=== PATIENT | female | born 1950 | race Caucasian/White ===

== ENCOUNTER 2018-06-03 18:48 | Outpatient (REF) | payer OTHER, SELFPAY ==
[2018-06-03 20:21] LABS: ALT 17 U/L (12-78); Anion Gap 7.4 mmol/L (3-11); BUN 16 mg/dL (7-18); CO2 32.6 mmol/L (21.0-32.0); CREATININE 1.41 mg/dL (0.55-1.02); Calcium 9.8 mg/dL (8.5-10.1); Chloride 102 mmol/L (98-107); Estimated GFR 36.98 (mL/min/1.73m2); Glucose 101 mg/dL (70-100); LDL CHOLESTEROL 109 mg/dL (<100); Sodium 142 mmol/L (136-145); TSH 1.09 uIU/mL (0.358-3.74)
[2018-06-07 13:28] LABS: Albumin 60.5 % (55.8-66.1); Total Protein 7.1 g/dl (6.3-8.2)
== END 2018-06-03 19:08 ==
LOC: NCHCN 18:48
PROVIDERS: PCP Internal Medicine; Visit Provider Internal Medicine
DX: I10 Essential (primary) hypertension (principal); M79.7 Fibromyalgia; H81.10 Benign paroxysmal vertigo, unspecified ear
CPT/HCPCS: 80048; 83721; 82043; 82570; 84165; 84443; 84460

== ENCOUNTER 2018-06-07 11:52 | Outpatient (REF) | payer OTHER, SELFPAY ==
[2018-06-07 20:55] LABS: COMMENT (LAB VIEW ONLY) 52.38 mg/dL; Microalb ug/mg Crea 6.7 ug/mg Cr
[2018-06-09 13:37] LABS: Albumin 59.8 % (55.8-66.1); Total Protein 6.8 g/dl (6.3-8.2)
[2018-06-10 16:38] LABS: Albumin 100 %; Total Protein 7 mg/dL
== END 2018-06-07 12:12 ==
LOC: NCHCN 11:52
PROVIDERS: PCP Internal Medicine; Visit Provider Internal Medicine
DX: N18.3 Chronic kidney disease, stage 3 (moderate) (principal)
CPT/HCPCS: 84156; 84166; 86335; 82043; 82570; 84165